=== PATIENT | male | born 1970 ===

== ENCOUNTER 2022-04-17 07:18 | Observation (INO) ==
[2022-04-17] MEDS ORDERED: SODIUM CHLORIDE 1,000 ML IV STA ×2 (07:36→09:20)
[2022-04-17 08:08] LABS: BASOPHILS # (AUTO) 0.1 K/uL (0-0.2); BASOPHILS % (AUTO) 1.8 % (0.0-3.0); EOSINOPHILS # (AUTO) 0.5 K/ul (0.0-0.7); HEMATOCRIT 32.3 % (42.0-52.0); HEMOGLOBIN 11.2 g/dl (14.0-18.0); IMMATURE GRANULOCYTE % (AUTO) 0.5 % (0.0-5.0); LYMPHOCYTES # (AUTO) 2.5 K/uL (0.60-3.4); LYMPHOCYTES % (AUTO) 31.4 (10.0-50.0); MEAN CORPUSCULAR HEMOGLOBIN 33.2 pg (27.0-31.0); MEAN CORPUSCULAR HGB CONC 34.7 (31.8-35.4); MEAN CORPUSCULAR VOLUME 95.8 fl (80.0-94.0); MONOCYTES # (AUTO) 0.5 K/uL (0.4-2.0); MONOCYTES % (AUTO) 5.9 (0-10); NEUTROPHILS # (AUTO) 4.4 K/ul (2.0-6.9); NEUTROPHILS % (AUTO) 54.4 % (42.2-75.2); PLATELET COUNT 290 10^3/uL (140-440); RDW COEFFICIENT OF VARIATION 12.8 % (11.6-14.8); RED BLOOD COUNT 3.37 10^6/ul (4.70-6.10)
[2022-04-17 08:17] LABS: ALANINE AMINOTRANSFERASE 38.2 U/L (0-50); ALBUMIN 4.31 g/dL (3.5-5.0); ALKALINE PHOSPHATASE 28.7 U/L (38-126); ASPARTATE AMINO TRANSFERASE 52.5 U/L (17-59); BILIRUBIN,TOTAL 0.15 mg/dL (0.2-1.3); BLOOD ALCOHOL 201.5 mg/dL (0.0-50.0); BLOOD UREA NITROGEN 8.3 mg/dL (9-20); CALCIUM 9.06 mg/dL (8.4-10.2); CARBON DIOXIDE 25.7 mmol/L (22-30.0); CHLORIDE 108.5 mmol/L (98-107); CREATININE 0.81 mg/dL (0.60-1.10); GLUCOSE 93.9 mg/dL (74-106); POTASSIUM 3.51 mmol/L (3.5-5.1); SODIUM 143.5 mmol/L (134.5-145)
--- NOTE | 2022-04-17 08:44 | ED.PDOC ---
General ED Provider: Dr. TANJA CANO Chief Complaint: Psychiatric Complaint Stated Complaint: Patient is a 52 year old male who was picked upped yesterday by EMS and taken to [facility] with possible stroke but turned out to be for a psych complaint. He had been out of his bipolar medications for few days and just got them yesterday. He has not taken them yet. he states that he was feeling dizzy and thought his Bipolar was kicking in.. He felt that he was going down hill. Time Seen by Provider: 04/17/22 07:33 Mode of Arrival: Ambulance Information Source: Patient and EMT Primary Care Provider: ENRRIQUE LIU Nursing and Triage Documentation Reviewed and Agree: Yes Does patient meet sepsis criteria?: No System Inflammatory Response Syndrome: Not Applicable Sepsis Protocol: For patient's 13 years and over: Temp is 96.8 and below OR 101 and greater Pulse >90 BPM Resp >20/minute Acutely Altered Mental Status Are patient's symptoms suggestive of a new infection, such as: -Pneumonia -Skin, Soft Tissue -Endocarditis -UTI -Bone, Joint Infection -Implantable Device -Acute Abdominal Infection -Wound Infection -Meningitis -Blood Stream Catheter Infection -Unknown Review of Systems Review Of Systems Constitutional: Reports Weakness Eyes: Reports No symptoms Ears, Nose, Mouth, Throat: Reports No symptoms Respiratory: Reports No symptoms Cardiac: Reports Lightheadedness GI: Reports No symptoms : Reports No symptoms Musculoskeletal: Reports No symptoms Skin: Reports No symptoms Neurological: Reports Anxiety, Depressed and Emotional problems All Other Systems: Reviewed and Negative [facility] Social History (System 02/17/22 @ 14:37 by LISETH TOUSSAINT) Smoking and tobacco status: Current every day smoker Tobacco: How many years used: 40 Passive smoking exposure: Yes Alcohol intake: current Substance use type: does not use Marital status: D Lives independently: Yes Number of children: 1 Highest education level completed: GED or equivalent Current occupational status: unemployed History of recent travel: No Sexually active: Yes Do you think of yourself as: straight/heterosexual Current gender identity: male Carbon monoxide detector in home: Yes Firearms in home: No Surgical History (System 02/17/22 @ 14:37 by LISETH TOUSSAINT) H/O eye surgery History of facial surgery Hx of heart artery stent Physical Exam Physical Exam Appearance: Reports Well-appearing Ill-appearing: None Pain Distress: None Eyes: Reports DEVI, EOMI and Conjunctiva clear ENT: Reports Ears normal and Oropharynx normal Neck: Not Examined Respiratory: Reports Airway patent and Breath sounds clear Cardiovascular: Reports RRR, Pulses normal and No rub GI/: Reports Soft, Nontender and No masses Musculoskeletal: Reports Normal strength, ROM intact and No edema Skin: Reports Warm and Dry Neurological: Reports Sensation intact, Motor intact and Other (Speech sometimes incomprehensible ) Psychiatric: Reports Anxious and Depressed Interpretation 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 Rate: Normal Rhythm: Sinus Ectopy: None EKG Interpretation Time of EKG #1: 07:43 Rate: Normal Rhythm: Sinus Ectopy: None Beryl: NL ST Segment: Normal Interpretation: Normal EKG Critical Care Note Critical Care Note Total Critical Care Time (mins): 30 Course Course Hematology/Chemistry: 04/17/22 07:50 04/17/22 07:50 Orders, Labs, Meds: Lab Review 04/17/22 04/17/22 04/17/22 07:50 07:50 07:50 WBC 8.00 RBC 3.37 L Hgb 11.2 L Hct 32.3 L MCV 95.8 H MCH 33.2 H MCHC 34.7 RDW Coeff of Temo 12.8 Plt Count 290 Immature Gran % (Auto) 0.5 Neut % (Auto) 54.4 Lymph % (Auto) 31.4 [place] % (Auto) 5.9 Eos % (Auto) 6.0 Baso % (Auto) 1.8 Neut # (Auto) 4.4 Lymph # (Auto) 2.5 [place] # (Auto) 0.5 Eos # (Auto) 0.5 Baso # (Auto) 0.1 Immature Gran # (Auto) 0.0 Sodium 143.5 Potassium 3.51 Chloride 108.5 H Carbon Dioxide 25.7 Anion Gap 12.81 BUN 8.3 L Creatinine 0.81 Estimated GFR (MDRD) 99.00 BUN/Creatinine Ratio 10.24 Glucose 93.9 Lactic Acid 1.11 Calcium 9.06 Total Bilirubin 0.15 L AST 52.5 ALT 38.2 Alkaline Phosphatase 28.7 L Total Protein 7.20 Albumin 4.31 Globulin 2.89 Albumin/Globulin Ratio 1.49 Procalcitonin TSH 2.880 Urine Color Urine Clarity Urine pH Ur Specific [place] Urine Protein Urine Glucose (UA) Urine Ketones Urine Blood Urine Nitrite Urine Bilirubin Urine Urobilinogen Ur Leukocyte Esterase Salicylate Level mg/dL < 1.00 Urine Opiates Screen Ur Oxycodone Screen Urine Methadone Screen Ur Propoxyphene Screen Acetaminophen < 10.0 L Ur Barbiturates Screen U Tricyclic Antidepress Ur Phencyclidine Scrn Ur Amphetamine Screen U Methamphetamines Scrn U Benzodiazepines Scrn Urine Cocaine Screen U Cannabinoids Screen Plasma/Serum Alcohol 201.5 H SARS CoV-2 RNA Rapid SY 04/17/22 04/17/22 04/17/22 07:50 09:11 09:11 WBC RBC Hgb Hct MCV MCH MCHC RDW Coeff of [place] Plt Count Immature Gran % (Auto) Neut % (Auto) Lymph % (Auto) [place] % (Auto) Eos % (Auto) Baso % (Auto) Neut # (Auto) Lymph # (Auto) [place] # (Auto) Eos # (Auto) Baso # (Auto) Immature Gran # (Auto) Sodium Potassium Chloride Carbon Dioxide Anion Gap BUN Creatinine Estimated GFR (MDRD) BUN/Creatinine Ratio Glucose Lactic Acid Calcium Total Bilirubin AST ALT Alkaline Phosphatase Total Protein Albumin Globulin Albumin/Globulin Ratio Procalcitonin < 0.05 TSH Urine Color Yellow Urine Clarity Clear Urine pH 6.0 Ur Specific [place] <=1.005 Urine Protein Negative Urine Glucose (UA) Negative Urine Ketones Negative Urine Blood Negative Urine Nitrite Negative Urine Bilirubin Negative Urine Urobilinogen 0.2 Ur Leukocyte Esterase Negative Salicylate Level mg/dL Urine Opiates Screen Negative Ur Oxycodone Screen Negative Urine Methadone Screen Negative Ur Propoxyphene Screen Negative Acetaminophen Ur Barbiturates Screen Negative U Tricyclic Antidepress Positive H Ur Phencyclidine Scrn Negative Ur Amphetamine Screen Negative U Methamphetamines Scrn Negative U Benzodiazepines Scrn Negative Urine Cocaine Screen Negative U Cannabinoids Screen Negative Plasma/Serum Alcohol SARS CoV-2 RNA Rapid SY 04/17/22 10:38 WBC RBC Hgb Hct MCV MCH MCHC RDW Coeff of [place] Plt Count Immature Gran % (Auto) Neut % (Auto) Lymph % (Auto) [place] % (Auto) Eos % (Auto) Baso % (Auto) Neut # (Auto) Lymph # (Auto) [place] # (Auto) Eos # (Auto) Baso # (Auto) Immature Gran # (Auto) Sodium Potassium Chloride Carbon Dioxide Anion Gap BUN Creatinine Estimated GFR (MDRD) BUN/Creatinine Ratio Glucose Lactic Acid Calcium Total Bilirubin AST ALT Alkaline Phosphatase Total Protein Albumin Globulin Albumin/Globulin Ratio Procalcitonin TSH Urine Color Urine Clarity Urine pH Ur Specific [place] Urine Protein Urine Glucose (UA) Urine Ketones Urine Blood Urine Nitrite Urine Bilirubin Urine Urobilinogen Ur Leukocyte Esterase Salicylate Level mg/dL Urine Opiates Screen Ur Oxycodone Screen Urine Methadone Screen Ur Propoxyphene Screen Acetaminophen Ur Barbiturates Screen U Tricyclic Antidepress Ur Phencyclidine Scrn Ur Amphetamine Screen U Methamphetamines Scrn U Benzodiazepines Scrn Urine Cocaine Screen U Cannabinoids Screen Plasma/Serum Alcohol SARS CoV-2 RNA Rapid SY Negative Orders Category Date Time Status EKG-(ED ONLY) Stat CARDIO 04/17/22 07:36 Completed ACETAMINOPHEN Stat LAB 04/17/22 07:50 Completed BLOOD ALCOHOL Stat LAB 04/17/22 07:50 Completed BLOOD CULTURE (ED ONLY) Stat LAB 04/17/22 07:50 Received CBC W/ AUTO DIFF Stat LAB 04/17/22 07:50 Completed COMPREHENSIVE METABOLIC PANEL Stat LAB 04/17/22 07:50 Completed DRUG SCREEN, URINE, RAPID Stat LAB 04/17/22 09:11 Completed LACTIC ACID Stat LAB 04/17/22 07:50 Completed PROCALCITONIN Stat LAB 04/17/22 07:50 Completed SALICYLATE Stat LAB 04/17/22 07:50 Completed SARS COV-2 RNA RAPID SY Stat LAB 04/17/22 10:38 Completed THYROID STIMULATING HORMONE Stat LAB 04/17/22 07:50 Completed URINALYSIS C & S IF INDICATED Stat LAB 04/17/22 09:11 Completed Sodium Chloride 0.9% [Sodium Chloride] 1,000 ml MEDS 04/17/22 07:36 Discontinued IV BOLUS Sodium Chloride 0.9% [Sodium Chloride] 1,000 ml MEDS 04/17/22 09:20 Discontinued IV BOLUS CHEST, 2 VIEWS PA & LAT Stat RADS 04/17/22 07:[address] HEAD W/O CONTRAST Stat RADS 04/17/22 07:36 Completed Medications Generic Name Dose Route Start Last Admin Trade Name Freq PRN Reason Stop Dose Admin Albuterol Sulfate 2 puff 04/17/22 12:10 Albuterol Sulfate (Ventolin Hfa) 18 Gm 1 Puff With Spacer IH Q4-6H PRN dyspnea Benztropine Mesylate 2 mg 04/17/22 21:00 Benztropine Mesylate 1 Mg Tablet PO BID SUDHEER Doxepin HCl 50 mg 04/17/22 21:00 Doxepin Hcl 25 Mg Capsule PO BID SUDHEER Folic Acid 1 mg 04/18/22 09:00 Folic Acid 1 Mg Tablet PO DAILY SUDHEER Lamotrigine 25 mg 04/17/22 15:00 Lamotrigine 25 Mg Tablet PO TID SUDHEER Discontinued Medications Generic Name Dose Route Start Last Admin Trade Name Yoshiq PRN Reason Stop Dose Admin Sodium Chloride 1,000 mls @ 1,000 mls/hr 04/17/22 07:36 04/17/22 07:46 Sodium Chloride IV 04/17/22 08:35 1,000 mls/hr BOLUS STA Administration Sodium Chloride 1,000 mls @ 1,000 mls/hr 04/17/22 09:20 04/17/22 09:23 Sodium Chloride IV 04/17/22 10:19 1,000 mls/hr BOLUS STA Administration Vital Signs: Temp Pulse Resp BP Pulse Ox 04/17/22 11:30 119/77 04/17/22 10:20 102/58 L 04/17/22 10:12 87/52 L 04/17/22 08:30 16 115/67 98 04/17/22 07:21 97.8 F 84 16 85/50 L 97 Discharge Plan Discharge Patient Disposition: ADMITTED INPATIENT Discharge Problem: Alcohol intoxication in active alcoholic with delirium, Bipolar disorder, Hypotension ED Provider: TANJA CANO Condition: Fair Physician Progress Note: []
[2022-04-17 08:48] LABS: SALICYLATE < 1.00 mg/dL (0-20.0)
[2022-04-17 08:49] LABS: ACETAMINOPHEN < 10.0 ug/ml (10-30)
--- NOTE | 2022-04-17 08:59 | DI ---
EXAM: Chest two view, frontal and lateral views. HISTORY: Sepsis. COMPARISON: 01/03/2022. FINDINGS: The heart size is normal. There is no pulmonary vascular congestion. Small opacity in th e lateral left lung base on the frontal view. Otherwise, the lungs are clear. No pleural effusion o r pneumothorax is seen. No acute osseous abnormality identified. IMPRESSION: Suspect left basilar atelectasis or pneumonia. Follow-up recommended.
[2022-04-17 09:20] LABS: BILIRUBIN,URINE Negative (NEGATIVE); CLARITY,URINE Clear (CLEAR); COLOR,URINE Yellow (YELLOW); GLUCOSE, URINE (UA) Negative (NEGATIVE); KETONES,URINE Negative (NEGATIVE); LEUKOCYTE ESTERASE ,URINE Negative (NEGATIVE); NITRITE,URINE Negative (NEGATIVE); PROTEIN,URINE Negative (NEGATIVE); URINE, BLOOD Negative (NEGATIVE); UROBILINOGEN,URINE 0.2 (0.2)
[2022-04-17 09:29] LABS: AMPHETAMINE SCREEN,URINE NEGATIVE (NEGATIVE); BARBITURATE SCREEN,URINE NEGATIVE (NEGATIVE); BENZODIAZEPINES SCREEN,URINE NEGATIVE (NEGATIVE); CANNABINOID SCREEN,URINE NEGATIVE (NEGATIVE); COCAIN SCREEN,URINE NEGATIVE (NEGATIVE); METHADONE URINE SCREEN NEGATIVE (NEGATIVE); METHAMPHETAMINES SCREEN,URINE NEGATIVE (NEGATIVE); OPIATE SCREEN,URINE NEGATIVE (NEGATIVE); OXYCODONE URINE SCREEN NEGATIVE (NEGATIVE); PHENCYCLIDINE SCREEN,URINE NEGATIVE (NEGATIVE); PROPOXYPHENE URINE SCREEN NEGATIVE (NEGATIVE); TRICYCLIC ANTIDEPRESSANTS URIN POSITIVE (NEGATIVE)
--- NOTE | 2022-04-17 09:30 | CT ---
EXAM: CT head without contrast. HISTORY: Mental status change. COMPARISON: 01/03/2022. TECHNIQUE: Multiple axial images of the brain were obtained from the skull base through the vertex w ithout intravenous contrast. Multiplanar reformats were provided. FINDINGS: There is no intracranial hemorrhage or extraaxial collection. The vivas-white differentiat ion is maintained without evidence for acute large vascular territory infarction. There are areas of periventricular and subcortical white matter low attenuation. The cortical sulci and cerebral ventr icles are symmetrically enlarged. The basal cisterns are well visualized. There is no hydrocephalus , mass effect, or midline shift. Ethmoid and sphenoid sinus mucosal thickening noted, severe in the right ethmoid sinuses. Otherwise, the paranasal sinuses and mastoid air cells are clear. The calvar ium is intact. Since the prior study, there has been no significant interval change. IMPRESSION: 1. No acute intracranial abnormality. 2. Chronic small vessel ischemic changes and atrophy. 3. Sinusitis. All CT scans are performed using dose optimization techniques as appropriate to the performed exam an d include at least one of the following: Automated exposure control, adjustment of the mA and/or kV according t o size, and the use of iterative reconstruction technique.
[2022-04-17] MEDS ORDERED: VENTOLIN HFA (PER PUFF-WITH SPACER) IH PRN (12:10)
[2022-04-17] MEDS ORDERED: ZOFRAN 4 MG/2 ML IVP PRN (12:11)
[2022-04-17] MEDS ORDERED: SODIUM CHLORIDE 1,000 ML IV SCH (12:30)
[2022-04-17 12:36] VITALS: BMI 26.3
[2022-04-17 13:46] VITALS: TEMP 97.9
[2022-04-17] MEDS ORDERED: MOTRIN PO PRN (14:35)
[2022-04-17] MEDS ORDERED: LAMICTAL PO SCH (15:00)
[2022-04-17 18:42] VITALS: BP 136/62
[2022-04-17] MEDS ORDERED: SINEQUAN PO SCH (21:00)
[2022-04-17] MEDS ORDERED: COGENTIN PO SCH (21:00)
[2022-04-17] MEDS ORDERED: KEPPRA PO SCH (21:00)
--- NOTE | 2022-04-17 22:25 | PCM.DC ---
Final Diagnosis: Admit 04/17 - Discharge 04/17 Admit Dx - Acute alcohol intoxication. Bipolar disorder flare due to noncompliance. Discharge Dx - Acute alcohol intox - resolved. Bipolar disorder - med. resumed. Physical Exam Appearance: Well-appearing Ill-appearing: None Pain Distress: None Eyes: DEVI ENT: Oropharynx normal Neck: Supple Respiratory: Airway patent and Breath sounds clear Cardiovascular: RRR and Pulses normal GI/: Soft Musculoskeletal: Normal strength and ROM intact Skin: Warm and Dry Neurological: Sensation intact, Motor intact and Alert Psychiatric: Affect appropriate and Mood appropriate Reason for Hospitalization: Acute alcohol intoxication. Confusion off psych med. Prognosis/Condition at Discharge: Improved and stable. Medications at Discharge: Ambulatory Orders Medication Instructions Recorded albuterol sulfate 90 mcg/actuation 2 puff INHALATION Q4-6H PRN 02/14/22 aerosol inhaler atorvastatin 20 mg tablet 20 mg PO DAILY 02/14/22 benztropine 2 mg tablet 2 mg PO BID 02/14/22 doxepin 50 mg capsule 50 mg PO BID 02/14/22 fenofibrate nanocrystallized 145 145 mg PO DAILY 02/14/22 mg tablet folic acid 1 mg tablet 1 mg PO DAILY 02/14/22 lamotrigine 25 mg tablet 25 mg PO TID 02/14/22 levetiracetam 750 mg tablet 750 mg PO BID 02/14/22 (Keppra) quetiapine 300 mg tablet 300 mg PO DAILY 02/14/22 tiotropium bromide 18 mcg capsule 18 mcg INHALATION BID 02/14/22 with inhalation device (Spiriva with HandiHaler) Lab/Diagnostics: Laboratory Tests 04/17/22 04/17/22 04/17/22 07:50 07:50 07:50 WBC 8.00 RBC 3.37 L Hgb 11.2 L Hct 32.3 L MCV 95.8 H MCH 33.2 H MCHC 34.7 RDW Coeff of Temo 12.8 Plt Count 290 Immature Gran % (Auto) 0.5 Neut % (Auto) 54.4 Lymph % (Auto) 31.4 [place] % (Auto) 5.9 Eos % (Auto) 6.0 Baso % (Auto) 1.8 Neut # (Auto) 4.4 Lymph # (Auto) 2.5 [place] # (Auto) 0.5 Eos # (Auto) 0.5 Baso # (Auto) 0.1 Immature Gran # (Auto) 0.0 Sodium 143.5 Potassium 3.51 Chloride 108.5 H Carbon Dioxide 25.7 Anion Gap 12.81 BUN 8.3 L Creatinine 0.81 Estimated GFR (MDRD) 99.00 BUN/Creatinine Ratio 10.24 Glucose 93.9 Lactic Acid 1.11 Calcium 9.06 Total Bilirubin 0.15 L AST 52.5 ALT 38.2 Alkaline Phosphatase 28.7 L Total Protein 7.20 Albumin 4.31 Globulin 2.89 Albumin/Globulin Ratio 1.49 Procalcitonin TSH 2.880 Urine Color Urine Clarity Urine pH Ur Specific [place] Urine Protein Urine Glucose (UA) Urine Ketones Urine Blood Urine Nitrite Urine Bilirubin Urine Urobilinogen Ur Leukocyte Esterase Salicylate Level mg/dL < 1.00 Urine Opiates Screen Ur Oxycodone Screen Urine Methadone Screen Ur Propoxyphene Screen Acetaminophen < 10.0 L Ur Barbiturates Screen U Tricyclic Antidepress Ur Phencyclidine Scrn Ur Amphetamine Screen U Methamphetamines Scrn U Benzodiazepines Scrn Urine Cocaine Screen U Cannabinoids Screen Plasma/Serum Alcohol 201.5 H SARS CoV-2 RNA Rapid SY 04/17/22 04/17/22 04/17/22 07:50 09:11 09:11 WBC RBC Hgb Hct MCV MCH MCHC RDW Coeff of Temo Plt Count Immature Gran % (Auto) Neut % (Auto) Lymph % (Auto) [place] % (Auto) Eos % (Auto) Baso % (Auto) Neut # (Auto) Lymph # (Auto) [place] # (Auto) Eos # (Auto) Baso # (Auto) Immature Gran # (Auto) Sodium Potassium Chloride Carbon Dioxide Anion Gap BUN Creatinine Estimated GFR (MDRD) BUN/Creatinine Ratio Glucose Lactic Acid Calcium Total Bilirubin AST ALT Alkaline Phosphatase Total Protein Albumin Globulin Albumin/Globulin Ratio Procalcitonin < 0.05 TSH Urine Color Yellow Urine Clarity Clear Urine pH 6.0 Ur Specific [place] <=1.005 Urine Protein Negative Urine Glucose (UA) Negative Urine Ketones Negative Urine Blood Negative Urine Nitrite Negative Urine Bilirubin Negative Urine Urobilinogen 0.2 Ur Leukocyte Esterase Negative Salicylate Level mg/dL Urine Opiates Screen Negative Ur Oxycodone Screen Negative Urine Methadone Screen Negative Ur Propoxyphene Screen Negative Acetaminophen Ur Barbiturates Screen Negative U Tricyclic Antidepress Positive H Ur Phencyclidine Scrn Negative Ur Amphetamine Screen Negative U Methamphetamines Scrn Negative U Benzodiazepines Scrn Negative Urine Cocaine Screen Negative U Cannabinoids Screen Negative Plasma/Serum Alcohol SARS CoV-2 RNA Rapid SY 04/17/22 10:38 WBC RBC Hgb Hct MCV MCH MCHC RDW Coeff of Temo Plt Count Immature Gran % (Auto) Neut % (Auto) Lymph % (Auto) [place] % (Auto) Eos % (Auto) Baso % (Auto) Neut # (Auto) Lymph # (Auto) [place] # (Auto) Eos # (Auto) Baso # (Auto) Immature Gran # (Auto) Sodium Potassium Chloride Carbon Dioxide Anion Gap BUN Creatinine Estimated GFR (MDRD) BUN/Creatinine Ratio Glucose Lactic Acid Calcium Total Bilirubin AST ALT Alkaline Phosphatase Total Protein Albumin Globulin Albumin/Globulin Ratio Procalcitonin TSH Urine Color Urine Clarity Urine pH Ur Specific [place] Urine Protein Urine Glucose (UA) Urine Ketones Urine Blood Urine Nitrite Urine Bilirubin Urine Urobilinogen Ur Leukocyte Esterase Salicylate Level mg/dL Urine Opiates Screen Ur Oxycodone Screen Urine Methadone Screen Ur Propoxyphene Screen Acetaminophen Ur Barbiturates Screen U Tricyclic Antidepress Ur Phencyclidine Scrn Ur Amphetamine Screen U Methamphetamines Scrn U Benzodiazepines Scrn Urine Cocaine Screen U Cannabinoids Screen Plasma/Serum Alcohol SARS CoV-2 [place] [address] Diagnostic Imaging Date of Service: 04/17/22 Ordering Physician: TANJA CANO MD Procedure(s): CT HEAD W/O CONTRAST Report Number(s): [id number] Accession Number(s): [id number] cc: ENRRIQUE LIU ; TANJA CANO MD EXAM: CT head without contrast. HISTORY: Mental status change. COMPARISON: 01/03/2022. TECHNIQUE: Multiple axial images of the brain were obtained from the skull base through the vertex without intravenous contrast. Multiplanar reformats were provided. FINDINGS: There is no intracranial hemorrhage or extraaxial collection. The vivas-white differentiation is maintained without evidence for acute large vascular territory infarction. There are areas of periventricular and subcortical white matter low attenuation. The cortical sulci and cerebral ventricles are symmetrically enlarged. The basal cisterns are well visualized. There is no hydrocephalus, mass effect, or midline shift. Ethmoid and sphenoid sinus mucosal thickening noted, severe in the right ethmoid sinuses. Otherwise, the paranasal sinuses and mastoid air cells are clear. The calvarium is in tact. Since the prior study, there has been no significant interval change. Head CT IMPRESSION: 1. No acute intracranial abnormality. 2. Chronic small vessel ischemic changes and atrophy. 3. Sinusitis. CXR FINDINGS: The heart size is normal. There is no pulmonary vascular congestion. Small opacity in the lateral left lung base on the frontal view. Otherwise, the lungs are clear. No pleural effusion or pneumothorax is seen. No acute osseous abnormality identified. Education Provided to Patient and Family: Per nursing staff Follow-ups: PCP within a week. Discharge Disposition: Home Hospital Course: Admitted for some IVF and observation. He made a quick recovery and asked to be discharged less than 12 hours after admit. Plan: Home for rest. Resume home med. No alcohol or drug use. Recheck with PCP.
[2022-04-18] MEDS ORDERED: FOLIC ACID PO SCH (09:00)
[2022-04-18] MEDS ORDERED: SEROQUEL PO SCH (09:00)
[2022-04-18] MEDS ORDERED: LOVENOX SUBCUT SCH (09:00)
[2022-04-18] MEDS ORDERED: SPIRIVA IH SCH (13:00)
== END 2022-04-17 19:10 | disposition home or self-care (01) ==
LOC: ED 07:18 → MEDSURG A 11:35 → INTOOBSV 11:35 → MEDSURG A 12:26
PROVIDERS: ADMIT Internal Medicine Geriatric Medicine; ATTEND Internal Medicine Geriatric Medicine
DX: F31.9 Bipolar disorder, unspecified; Z51.81 Encounter for therapeutic drug level monitoring; F10.121 Alcohol abuse with intoxication delirium; Z79.899 Other long term (current) drug therapy; Z20.822 Contact with and (suspected) exposure to COVID-19; I95.9 Hypotension, unspecified